=== PATIENT | female | born 1990 | race African-American/Black ===

== ENCOUNTER 2023-11-22 00:03 | Emergency (ER) | payer MEDICAID ==
[2023-11-22] MEDS: Acetaminophen/HYDROcodone 325-5 MG Tab PO ONE (00:32)
== END 2023-11-22 00:39 | disposition home or self-care (01) ==
LOC: MW.ED 00:03
DX: G56.01 Carpal tunnel syndrome, right upper limb (principal); Z75.8 Other problems related to medical facilities and other health care
CPT/HCPCS: 99283; A9270

== ENCOUNTER 2024-01-03 08:39 | Emergency (ER) | payer OTHER, MEDICAID ==
[2024-01-03] MEDS: Ketorolac 60 MG/2 ML SDV IM ONE (09:10)
== END 2024-01-03 09:00 | disposition home or self-care (01) ==
LOC: MW.ED 08:39
DX: G56.03 Carpal tunnel syndrome, bilateral upper limbs (principal); M54.50 Low back pain, unspecified; Z90.89 Acquired absence of other organs; Z79.899 Other long term (current) drug therapy; Z75.8 Other problems related to medical facilities and other health care; V89.2XXA Person injured in unspecified motor-vehicle accident, traffic, initial encounter
CPT/HCPCS: 96372; 99283; J1885

== ENCOUNTER 2024-02-19 06:34 | Emergency (ER) | payer MEDICAID ==
[2024-02-19] MEDS: Acetaminophen 500 MG Tab PO ONE (06:54)
[2024-02-19] MEDS: Ibuprofen 600 MG Tab PO ONE (06:54)
== END 2024-02-19 08:37 | disposition home or self-care (01) ==
LOC: MW.ED 06:34
DX: B34.9 Viral infection, unspecified (principal); Z90.89 Acquired absence of other organs; Z88.5 Allergy status to narcotic agent; Z75.8 Other problems related to medical facilities and other health care
CPT/HCPCS: 71045; 87428; 99285; A9270

== ENCOUNTER 2025-01-11 08:57 | Emergency (ER) | payer SELFPAY ==
[2025-01-11 09:33] LABS: BASOPHILS ABSOLUTE AUTO 0.02 K/uL (0.00-0.20); BASOPHILS PERCENT AUTO 0.4 % (0.0-1.0); EOSINOPHILS ABSOLUTE AUTO 0.08 K/uL (0.00-0.45); EOSINOPHILS PERCENT AUTO 1.5 % (0.0-6.0); IMMATURE GRAN ABSOLUTE AUTO 0.01 K/uL (0.00-0.05); IMMATURE GRAN PERCENT AUTO 0.2 % (0.0-0.4); LYMPHOCYTES ABSOLUTE AUTO 1.45 K/uL (1.00-4.80); LYMPHOCYTES PERCENT AUTO 27.4 % (24.0-44.0); MEAN PLATELET VOLUME 9.4 fL (9.4-12.3); MONOCYTES ABSOLUTE AUTO 0.41 K/uL (0.00-0.80); MONOCYTES PERCENT AUTO 7.7 % (0.0-8.0); NEUTROPHILS ABSOLUTE AUTO 3.33 K/uL (1.80-7.70); NEUTROPHILS PERCENT AUTO 62.8 % (41.0-71.0); NRBC ABSOLUTE 0.00 K/uL (0.00-0.02); NRBC PERCENT 0.0 /100WBC (0.0-0.2); PLATELET COUNT,PLT 295 K/uL (150-400); RED BLOOD CELL COUNT 4.31 M/uL (4.10-5.30); WHITE BLOOD CELL COUNT,WBC 5.30 K/uL (3.9-11.3)
[2025-01-11 09:34] LABS: APPEARANCE,URINE CLEAR; GLUCOSE,URINE NEGATIVE (NEGATIVE); OCCULT BLOOD,URINE TRACE-INTACT (NEGATIVE)
[2025-01-11 09:42] LABS: SQUAMOUS EPITHELIAL CELLS,UR FEW
[2025-01-11 10:03] LABS: BLOOD UREA NITROGEN,BUN 11.0 mg/dL (7.0-18.0); CARBON DIOXIDE,CO2 26.3 mmol/L (21.0-32.0); CHLORIDE,CL 108.0 mmol/L (98-107); CREATININE 0.6 mg/dL (0.6-1.0); EST CRCL DRUG DOSING (CG) 99.69 mL/min; GLUCOSE RANDOM 95.0 mg/dL (74-106); HCG QUANTITATIVE 7.0 mIU/mL; POTASSIUM,K 4.2 mmol/L (3.5-5.1); SODIUM,NA 139.0 mmol/L (136-145)
[2025-01-11 10:04] LABS: ESTIMATED GFR 121.0 mL/min (>60)
== END 2025-01-11 11:10 | disposition home or self-care (01) ==
LOC: MW.ED 08:57
DX: O20.0 Threatened abortion (principal); Z3A.01 Less than 8 weeks gestation of pregnancy; Z88.5 Allergy status to narcotic agent
CPT/HCPCS: 36415; 76817; 80048; 81001; 81025; 84702; 85025; 86900; 86901; 87086; 99284; J7030; 99283